=== PATIENT | female | born 1995 | race Caucasian/White ===

== ENCOUNTER 2022-10-04 22:27 | Emergency (ER) | payer OTHER ==
[~2022-10-04 22:27] MED LIST: ACETAMINOPHEN-H1 TA2 PO; CIPRO500 MG PO
[2022-10-05 00:33] LABS: BILIRUBIN Negative (Negative); BLOOD 2+ (Negative); CLARITY Cloudy (Clear); COLOR Yellow (Yellow); GLUCOSE Negative (Negative); KETONE Negative (Negative); LEUKO ESTERASE 3+ (Negative); NITRITE Negative (Negative)
[2022-10-05 00:46] LABS: BASO % 0.2 % (0.0-1.0); EOS # 0.2 10*3/uL (0.0-0.4); EOS % 1.7 % (1.0-4.0); LYMPH # 3.2 10*3/uL (1.3-4.4); LYMPH % 23.3 % (27.0-41.0); MEAN CELL VOLUME 93.8 fl (81.0-99.0); MEAN CORPUSCULAR HGB 32.3 pg (27.0-31.0); MEAN CORPUSCULAR HGB CONC 34.5 g/dl (33.0-37.0); MEAN PLATELET VOLUME 9.6 fl (9.6-12.3); MONO # 0.9 10*3/uL (0.1-1.0); MONO % 6.2 % (3.0-9.0); NEUT # 9.4 10*3/uL (2.3-7.9); NEUT % 68.2 % (47.0-73.0); PLATELET COUNT AUTOMATED 281 10*3/uL (130-400); RED BLOOD COUNT 4.05 10*6/uL (4.10-5.10); RED CELL DISTRI WIDTH 12.5 % (0-14.5); WHITE BLOOD COUNT 13.8 10*3/uL (4.8-10.8)
[2022-10-05 00:59] LABS: RBC 16-20 rbc/hpf (0-2)
[2022-10-05 01:00] LABS: BACTERIA 2+; WBC TNTC wbc/hpf (0-5)
[2022-10-05 01:00] LABS: ACT PARTIAL THROMBO TIME 25.8 SECONDS (20.0-32.1); INTERNATIONAL NORM RATIO 0.9 (2.0-3.5)
[2022-10-05 01:06] LABS: ALKALINE PHOSPHATASE 80 U/L (46-116); BUN 9 mg/dl (9-23); CHLORIDE 106 mmol/L (98-107); LIPASE 29 U/L (12-53); POTASSIUM 3.6 mmol/L (3.4-5.1); SGPT/ALT 10 U/L (10-49); TOTAL PROTEIN 6.6 gm/dL (6.0-8.0)
[2022-10-05] MEDS ORDERED: CEPHALEXIN500 M1 PO (03:44)
[2022-10-05] MEDS ORDERED: DIFLUCAN150 MG PO (03:44)
== END 2022-10-05 04:03 | disposition home or self-care (01) ==
LOC: ED 22:27
PROVIDERS: Family Medicine
DX: N39.0 Urinary tract infection, site not specified (principal); Z20.822 Contact with and (suspected) exposure to COVID-19; F17.200 Nicotine dependence, unspecified, uncomplicated; F10.20 Alcohol dependence, uncomplicated